=== PATIENT | male | born 1985 | race African-American/Black ===

== ENCOUNTER 2017-03-30 11:24 | Emergency (ER) | payer BC, SELFPAY ==
[2017-03-30] MEDS ORDERED: Lidocaine 1% (PF) 30 ML VIAL ONE (13:54)
[2017-03-30] MEDS ORDERED: Bacitracin Zinc 1 Packet ONE (14:22)
== END 2017-03-30 14:35 | disposition home or self-care (01) ==
LOC: ERS 11:24
DX: S01.112A Laceration without foreign body of left eyelid and periocular area, initial encounter (principal); H11.32 Conjunctival hemorrhage, left eye; F17.220 Nicotine dependence, chewing tobacco, uncomplicated; W01.0XXA Fall on same level from slipping, tripping and stumbling without subsequent striking against object, initial encounter
CPT/HCPCS: 12013; J2001

== ENCOUNTER 2017-04-10 10:20 | Emergency (ER) | payer SELFPAY ==
[2017-04-10] MEDS ORDERED: Adacel (T-DAP) 0.5 ML VIAL ONE (11:02)
== END 2017-04-10 11:19 | disposition home or self-care (01) ==
LOC: ERS 10:20
DX: S01.112D Laceration without foreign body of left eyelid and periocular area, subsequent encounter (principal); F17.220 Nicotine dependence, chewing tobacco, uncomplicated
CPT/HCPCS: 90471; 90715

== ENCOUNTER 2018-07-09 21:24 | Emergency (ER) | payer SELFPAY ==
--- NOTE | 2018-07-09 22:04 | RAD ---
FRONTAL VIEW CHEST: 07/09/18 COMPARISON: 08/09/14 INDICATION: Cough, dizziness, atrial fibrillation. FINDINGS: There is mild patchy left perihilar opacity. There is eventration of each hemidiaphragm. Cardiac silh ouette is normal in size. No significant effusion or discrete pneumothorax on the provided frontal v iew. IMPRESSION: No significant abnormality. POS: [facility]
[2018-07-09 23:09] LABS: #Basophils 0.1 thou/uL (0.0-0.2); #Lymphocytes 2.1 thou/uL (1.20-3.40); #Monocytes 0.6 thou/uL (0.11-0.59); #Neutrophils 4.7 thou/uL (1.40-6.50); %Eosinophils 0.4 % (0.0-10.0); %Lymphocytes 27.6 % (21.0-51.0); %Monocytes 7.6 % (0.0-10.0); %Neutrophils 63.4 % (42.0-75.0); Hemoglobin 16.5 g/dL (14.0-18.0); Mean Corpuscular HGB CONC 35.5 g/dL (32.0-36.0); Mean Corpuscular Hemoglobin 30.9 pg (27.0-31.0); Mean Corpuscular Volume 86.9 fL (78.0-98.0); Mean Platelet Volume 8.4 fL (7.4-10.4); Platelet Count 210 thou/uL (130-400); RBC Distribution Width 11.6 % (11.5-14.5); Red Blood Cell (RBC) Count 5.35 mill/uL (4.70-6.10); White Blood Cell (WBC) Count 7.4 thou/uL (4.8-10.8)
[2018-07-09 23:30] LABS: ALT (SGPT) 10 U/L (8-55); AST (SGOT) 18 U/L (5-34); Albumin 4.8 g/dL (3.5-5.0); Alkaline Phosphatase 80 U/L (40-150); Anion Gap 17 mmol/L (10-20); BUN (Urea Nitrogen) 10 mg/dL (8.9-20.6); Bilirubin, Total 0.8 mg/dL (0.2-1.2); Calc. Creatinine Clearance 0 mL/min (70-130); Calcium 10.1 mg/dL (7.8-10.44); Carbon Dioxide 23 mmol/L (22-29); Chloride 106 mmol/L (98-107); Estimated GFR-MDRD 79; Globulin 3.5 g/dL (2.4-3.5); Glucose 78 mg/dL (70-105); Potassium 3.9 mmol/L (3.5-5.1); Protein, Total 8.3 g/dL (6.0-8.3); Sodium 142 mmol/L (136-145)
== END 2018-07-09 23:54 | disposition home or self-care (01) ==
LOC: ERS 21:24
DX: R42 Dizziness and giddiness (principal); F17.220 Nicotine dependence, chewing tobacco, uncomplicated
CPT/HCPCS: 36415; 71045; 80053; 85025; 93005

== ENCOUNTER 2018-08-25 16:25 | Emergency (ER) | payer SELFPAY | END 2018-08-25 16:48 | disposition left against medical advice (07) | LOC: ERS 16:25 | DX: Z53.21 Procedure and treatment not carried out due to patient leaving prior to being seen by health care provider (principal) ==

== ENCOUNTER 2018-08-25 17:43 | Emergency (ER) | payer SELFPAY | END 2018-08-25 18:40 | disposition home or self-care (01) | LOC: ERS 17:43 | DX: M54.5 Low back pain (principal); M79.601 Pain in right arm; M79.602 Pain in left arm; X50.0XXA Overexertion from strenuous movement or load, initial encounter | CPT/HCPCS: 99283 ==

== ENCOUNTER 2019-06-05 12:50 | Emergency (ER) | payer SELFPAY ==
[2019-06-05] MEDS ORDERED: Lidocaine Viscous Sol 2% 15 ml UD Cup ONE (13:04)
[2019-06-05] MEDS ORDERED: Milk Of Magnesia 30 ML UDCUP ONE (13:04)
[2019-06-05 13:29] LABS: #Eosinphils 0.1 thou/uL (0.0-0.7); #Lymphocytes 3.2 thou/uL (1.20-3.40); #Monocytes 0.3 thou/uL (0.11-0.59); #Neutrophils 4.2 thou/uL (1.40-6.50); %Basophils 0.5 % (0.0-1.0); %Lymphocytes 41.4 % (21.0-51.0); %Monocytes 3.3 % (0.0-10.0); %Neutrophils 53.7 % (42.0-75.0); Mean Corpuscular HGB CONC 34.5 g/dL (32.0-36.0); Mean Corpuscular Hemoglobin 30.7 pg (27.0-31.0); Mean Corpuscular Volume 89.1 fL (78.0-98.0); Mean Platelet Volume 8.4 fL (7.4-10.4); Platelet Count 218 thou/uL (130-400); RBC Distribution Width 11.8 % (11.5-14.5); Red Blood Cell (RBC) Count 5.21 mill/uL (4.70-6.10); White Blood Cell (WBC) Count 7.8 thou/uL (4.8-10.8)
[2019-06-05 13:54] LABS: ALT (SGPT) 11 U/L (8-55); AST (SGOT) 17 U/L (5-34); Albumin 4.5 g/dL (3.5-5.0); Alkaline Phosphatase 93 U/L (40-110); Anion Gap 12 mmol/L (10-20); BUN (Urea Nitrogen) 7 mg/dL (8.9-20.6); Bilirubin, Total 0.5 mg/dL (0.2-1.2); Calc. Creatinine Clearance 0 mL/min (70-130); Calcium 9.3 mg/dL (7.8-10.44); Carbon Dioxide 22 mmol/L (22-29); Chloride 108 mmol/L (98-107); Estimated GFR-MDRD Greater than 90; Glucose 103 mg/dL (70-105); Lipase 9 U/L (8-78); Potassium 3.6 mmol/L (3.5-5.1); Protein, Total 7.5 g/dL (6.0-8.3); Sodium 138 mmol/L (136-145)
== END 2019-06-05 14:24 | disposition home or self-care (01) ==
LOC: ERS 12:50
DX: K29.00 Acute gastritis without bleeding (principal)
CPT/HCPCS: 36415; 80053; 83690; 84484; 85025; 93005